=== PATIENT | female | born 1950 | race Asian ===

== ENCOUNTER 2016-10-10 09:38 | Emergency (ER) | payer OTHER ==
[~2016-10-10] VITALS: Ht 149.9 cm; Wt 63.2 kg
[~2016-10-10 09:38] MED LIST: LISI5 PO; METO25 PO; SERT-132 PO
[2016-10-10 09:47] VITALS: BP 124/84; PULSE 64; RESP 16; TEMP 98.4; O2SAT 98
[2016-10-10] MEDS ORDERED: SERT-132 PO (09:58)
[2016-10-10] MEDS ORDERED: LOSA25TA PO (09:58)
[2016-10-10] MEDS ORDERED: ASPI81CH CHEW (09:58)
[2016-10-10] MEDS ORDERED: METO50TA PO (09:58)
[2016-10-10] MEDS ORDERED: LIDOCAINE 1%/EPINEPHrine 1:100,000 SOLN 20 ML VIAL INFIL ONE (11:00)
--- NOTE | 2016-10-10 11:21 | PD ---
HPI . Facial laceration Chief Complaint: Head Injury Time Seen by Provider: 10:55 Travel History International Travel<30 days: No Contact w/Intl Traveler<30days: No Traveled to known affect area: No History of Present Illness HPI Patient presents following a trip and fall with a resultant facial laceration. She denies loss of consciousness. She denies neck pain. She does not know the date of her last tetanus shot. PFSH Past Medical History Hx Anticoagulant Therapy: Yes (ASA 81MG HS) Cancer: No Cardiovascular Problems: Yes Cerebrovascular Accident: Yes (TIA 2007) Diminished Hearing: No Endocrine: Yes Genitourinary: No Hypertension: Yes Immune Disorder: No Musculoskeletal: No Neurologic: Yes Psychiatric: No Reproductive: No Respiratory: No Migraines: No Seizures: No Thyroid Disease: Yes ?: Not Menopausal: Yes Past Surgical History Other Surgery: No Social History Alcohol Use: Yes (OCCASIONAL) Tobacco Use: No Substance Use: No Allergies-Medications (Allergen,Severity, Reaction): Coded Allergies: No Known Allergies (Verified , 10/10/16) Reported Meds & Prescriptions Reported Meds & Active Scripts Active Reported Losartan (Losartan Potassium) 25 Mg Tab Unknown Dose PO DAILY Sertraline (Sertraline HCl) 50 Mg Tab 50 Mg PO DAILY Metoprolol Tartrate 50 Mg Tab 50 Mg PO DAILY Aspirin 81 Mg Chew 81 Mg CHEW DAILY Review of Systems Except as stated in HPI: all other systems reviewed are Neg HENT: No: Lightheadedness, Neck Pain Skin: Positive Other (laceration) Neurologic: No: Syncope Physical Exam Narrative GENERAL: Awake and alert and in no acute distress. SKIN: Warm and dry. 4 cm laceration just above the right eyebrow. NECK: Nontender with full range of motion. CARDIOVASCULAR: Regular rate and rhythm. RESPIRATORY: No accessory muscle use. MUSCULOSKELETAL: No obvious deformities. No edema. NEUROLOGICAL: Awake and alert. No obvious cranial nerve deficits. Motor grossly within normal limits. Normal speech. PSYCHIATRIC: Appropriate mood and affect; insight and judgment normal. Data Data Last Documented VS Vital Signs Date Time Temp Pulse Resp B/P Pulse Ox O2 Delivery O2 Flow Rate FiO2 10/10/16 09:47 98.4 64 16 124/84 98 Orders Lidocai-Epi 1%-1:100,000 Inj (Xylocaine- (10/10/16 11:00) [facility] Medical Decision Making Medical Screen Exam Complete: Yes Emergency Medical Condition: Yes Differential Diagnosis Differential diagnosis includes but is not limited to skin laceration, muscular laceration, tendon laceration, neurovascular laceration. Narrative Course Patient presents for treatment of a facial laceration following a trip and fall. No evidence of head injury. No complaints of neck pain. Procedures Procedure Narrative LACERATION LOCATION: Right eyebrow LENGTH: 4 cm NUMBER OF STITCHES/GEORGE: 5 REPAIR: The area of the laceration was prepped with peroxide and sterilely draped. The laceration was infiltrated with 8 use of 1% lidocaine with epinephrine. The wound was explored without evidence of foreign body, tendon injury or neurovascular injury. The wound was closed using 6-0 Prolene sutures. This was a single layer repair. Patient tolerated the procedure well. Diagnosis Primary Impression: Facial laceration Qualified Code: S01.81XA - Facial laceration, initial encounter Patient Instructions: Facial Laceration (ED), General Instructions Additional Instructions: Clean the wound twice daily with soap and water. Apply a thin layer of Neosporin ointment after you wash it. See your doctor in 5 days for suture removal. Seek care sooner for redness, drainage, warmth, unusual pain. Disposition: 01 DISCHARGE HOME Condition: Stable Natalie Israel MD Oct 10, 2016 11:21
[2016-10-10] MEDS ORDERED: NEOMYCIN/POLYMYXIN/BACITRACIN OINT 15 GM TUBE TOPICAL ONE (11:30)
[2016-10-10] MEDS ORDERED: TETANUS/DIPHTHERIA TOXOID ADULT 0.5 ML VIAL IM ONE (11:30)
== END 2016-10-10 11:41 | disposition home or self-care (01) ==
LOC: PHED 09:38
DX: S01.81XA Laceration without foreign body of other part of head, initial encounter (principal); W01.0XXA Fall on same level from slipping, tripping and stumbling without subsequent striking against object, initial encounter; Z23 Encounter for immunization
CPT/HCPCS: 12013; 90471; 90714

== ENCOUNTER 2017-10-18 13:47 | Emergency (ER) | payer OTHER ==
[~2017-10-18] VITALS: Ht 149.9 cm; Wt 65.0 kg
[~2017-10-18 13:47] MED LIST changes: +ASPI-516 CHEW; -LISI5 PO; +LOSA25TA PO; -METO25 PO; +METO50TA PO
[2017-10-18 14:11] VITALS: BP 164/79; PULSE 60; RESP 16; TEMP 97.7; O2SAT 98
[2017-10-18] MEDS ORDERED: MECL-62 PO (16:12)
--- NOTE | 2017-10-18 16:12 | PD ---
HPI Chief Complaint: Dizziness Time Seen by Provider: 16:01 Travel History International Travel<30 days: No Contact w/Intl Traveler<30days: No Traveled to known affect area: No History of Present Illness HPI Patient is a 67-year-old female presents emergency department for evaluation of vertiginous symptoms. Patient states she has been dizzy on and off for the past 3 days, she states is worse when she sits up, she had some nausea and he got fairly severe this morning and she threw up once. She states symptoms really only last for a few moments and then go away. She does have a history of stroke in the past. She is also has a history of vertigo and had been on medication for this in the past but she does not know the name of it. She denies any visual difficulties focalized weakness tremors diarrhea or constipation. States his symptoms are mild, intermittent over the past 3 days, associated signs and symptoms in context as above. PFSH Past Medical History Hx Anticoagulant Therapy: Yes (ASA 81MG HS) Cancer: No Cardiovascular Problems: Yes Cerebrovascular Accident: Yes (TIA 2007) Diminished Hearing: No Endocrine: Yes Genitourinary: No Hypertension: Yes Immune Disorder: No Musculoskeletal: No Neurologic: Yes Psychiatric: No Reproductive: No Respiratory: No Migraines: No Seizures: No Thyroid Disease: Yes Menopausal: Yes Past Surgical History Other Surgery: No Social History Alcohol Use: Yes (OCCASIONAL) Tobacco Use: No Substance Use: No Allergies-Medications (Allergen,Severity, Reaction): Coded Allergies: No Known Allergies (Verified Adverse Reaction, Unknown, 10/18/17) Reported Meds & Prescriptions Reported Meds & Active Scripts Active Meclizine (Meclizine HCl) 25 Mg Tab 25 Mg PO TID PRN Reported Levothyroxine (Levothyroxine Sodium) 50 Mcg Tab 50 Mcg PO DAILY Simvastatin 10 Mg Tab 10 Mg PO DAILY Losartan (Losartan Potassium) 25 Mg Tab Unknown Dose PO DAILY Sertraline (Sertraline HCl) 50 Mg Tab 50 Mg PO DAILY Metoprolol Tartrate 50 Mg Tab 50 Mg PO DAILY Aspirin 81 Mg Chew 81 Mg CHEW DAILY Review of Systems Except as stated in HPI: all other systems reviewed are Neg Physical Exam Narrative GENERAL: Well-developed well-nourished, no obvious distress SKIN: Focused skin assessment warm/dry. HEAD: Atraumatic. Normocephalic. EYES: Pupils equal and round. No scleral icterus. No injection or drainage. ENT: No nasal bleeding or discharge. Mucous membranes pink and moist. TMs clear bilaterally. NECK: Trachea midline. No JVD. CARDIOVASCULAR: Regular rate and rhythm. No murmur appreciated. RESPIRATORY: No accessory muscle use. Clear to auscultation. Breath sounds equal bilaterally. GASTROINTESTINAL: Abdomen soft, non-tender, nondistended. Hepatic and splenic margins not palpable. MUSCULOSKELETAL: No obvious deformities. No clubbing. No cyanosis. No edema. NEUROLOGICAL: Awake and alert. Cranial nerves II through XII grossly intact and nonfocal, 5 out of 5 strength in all 4 extremities, cerebellar testing with [id number] and heel ni testing negative, ambulance with an even narrow -base gait. PSYCHIATRIC: Appropriate mood and affect; insight and judgment normal. Data Data Last Documented VS Vital Signs Date Time Temp Pulse Resp B/P (MAP) Pulse Ox O2 Delivery O2 Flow Rate FiO2 10/18/17 14:11 97.7 60 16 164/79 (107) 98 Orders Orders Meclizine (Antivert) (10/18/17 16:15) Ed Discharge Order (10/18/17 16:18) MDM Medical Decision Making Medical Screen Exam Complete: Yes Emergency Medical Condition: Yes Differential Diagnosis Labyrinthitis, BPPV, acute cerebellar stroke highly unlikely. Narrative Course Patient room to the emergency department, signs symptoms are suggestive of vertigo, certainly she has had in the past and states that it feels very similar. She states is been about 10 years since she has had in the past. Discussed meclizine versus Valium and she preferred just for meclizine at this time, dose was given in emergency department, discussed Oswald maneuver with her and handout was given. She is stable for discharge this time, she has a follow- up appointment with her primary care physician in 2 days. Discussed return to ED criteria Diagnosis Primary Impression: Vertigo Med/Other Pt SpecificInfo: Prescription(s) given Scripts Meclizine (Meclizine) 25 Mg Tab 25 MG PO TID Y for VERTIGO, #20 TAB 0 Refills Prov: Timothy Garcia MD 10/18/17 Disposition: 01 DISCHARGE HOME Condition: Stable Timothy Garcia MD Oct 18, 2017 16:12
[2017-10-18] MEDS ORDERED: LEVO50TA4 PO (16:13)
[2017-10-18] MEDS ORDERED: SIMV10TA PO (16:13)
[2017-10-18] MEDS ORDERED: MECLIZINE HCL 25 MG TAB PO ONE (16:15)
== END 2017-10-18 16:52 | disposition home or self-care (01) ==
LOC: PHED 13:47
DX: R42 Dizziness and giddiness (principal); E07.9 Disorder of thyroid, unspecified; I10 Essential (primary) hypertension; Z86.73 Personal history of transient ischemic attack (TIA), and cerebral infarction without residual deficits; Z79.82 Long term (current) use of aspirin
CPT/HCPCS: 99283